=== PATIENT | female | born 1990 | race Caucasian/White ===

== ENCOUNTER 2024-03-20 17:04 | Emergency (ER) | payer MEDICAID ==
[~2024-03-20] VITALS: Ht 165.1 cm; Wt 79.4 kg
[2024-03-20 17:25] VITALS: BP_SYST 158; PULSE 95; RESP 18; TEMP 97.8; O2SAT 95
[2024-03-20] MEDS: LORazepam 2 MG/ML VIAL IM ONE (17:25)
[2024-03-20] MEDS: ONDANSETRON HCL 4 MG/2 ML VIAL IVP ONE (18:15)
[2024-03-20 18:18] LABS: BASOPHILS # (AUTO) 0.1 K/uL (0.0-0.2); BASOPHILS % (AUTO) 1.2 % (0.0-2.0); EOSINOPHILS # (AUTO) 0.1 K/uL (0.0-0.4); EOSINOPHILS % (AUTO) 1.4 % (0.0-4.0); HEMATOCRIT 34.8 % (36-48); HEMOGLOBIN 11.6 g/dL (12.0-16.0); LYMPHOCYTES # (AUTO) 2.4 K/uL (1.0-5.5); LYMPHOCYTES % (AUTO) 33.3 % (20.5-51.5); MEAN CORPUSCULAR HEMOGLOBIN 28 pg (27-31); MEAN CORPUSCULAR HGB CONC 33 % (32-36); MEAN CORPUSCULAR VOLUME 85 fL (79.0-98.0); MONOCYTES # (AUTO) 0.5 K/uL (0.0-1.0); MONOCYTES % (AUTO) 6.4 % (1.7-9.3); NEUTROPHILS # (AUTO) 4.2 K/uL (1.8-7.7); NEUTROPHILS % (AUTO) 57.7 % (40.0-70.0); PLATELET COUNT (AUTO) 277 K/uL (130-430); RED BLOOD CELL COUNT(AUTO) 4.12 MIL/uL (4.2-6.2); RED CELL DISTRIBUTION WIDTH 16.5 % (9.0-15.0); WHITE BLOOD COUNT (AUTO) 7.3 K/uL (4.8-10.8)
[2024-03-20 18:29] LABS: ALBUMIN 3.3 g/dL (3.4-4.8); CREATININE 0.87 mg/dL (0.55-1.30); POTASSIUM 3.3 mmol/L (3.5-5.1); TOTAL BILIRUBIN 0.3 mg/dL (0.0-1.0); TOTAL PROTEIN, SERUM 7.6 g/dL (6.4-8.3)
[2024-03-20 18:30] LABS: BILIRUBIN,DIRECT 0.1 mg/dL (0.0-0.3)
[2024-03-20 20:05] LABS: BARBITURATE, URINE NEGATIVE (NEG <=200)
[2024-03-20 20:06] LABS: BENZODIAZEPINE, URINE NEGATIVE (NEG <=150); CANNABINOID, URINE POSITIVE (NEG <=50); COCAINE, URINE NEGATIVE (NEG <=150); METHAMPHETAMINES SCREEN,URINE POSITIVE (NEG <=500); OPIATE, URINE NEGATIVE (NEG <=100); PHENCYCLIDINE SCREEN,URINE NEGATIVE (NEG <=25); UR TRICYCLIC ANTIDEPRESSANTS NEGATIVE (NEG <=300); URINE AMPHETAMINE NEGATIVE (NEG <=500); URINE METHADONE NEGATIVE (NEG <=200); URINE OXYCODONE SCREEN NEGATIVE (NEG <=100)
[2024-03-20] MEDS: NACL 0.9% 1,000 ML IV ONE (20:35)
[2024-03-20] MEDS: THIAMINE HCL 200 MG/2 ML VIAL IM ONE (20:40)
[2024-03-21] MEDS: LABETALOL HCL 20 MG/4 ML CARTRIDGE IVP ONE ×2 (03:26→06:27)
[2024-03-21] MEDS: ONDANSETRON HCL 4 MG/2 ML VIAL IVP ONE (07:42)
[2024-03-21 13:00] VITALS: BP_SYST 168; PULSE 79; RESP 19; TEMP 97.8; O2SAT 98
== END 2024-03-21 12:28 | disposition home or self-care (01) ==
LOC: EDBD 17:04 → SED 17:04
DX: F10.129 Alcohol abuse with intoxication, unspecified (principal); F12.10 Cannabis abuse, uncomplicated; F15.10 Other stimulant abuse, uncomplicated; Y90.8 Blood alcohol level of 240 mg/100 ml or more
CPT/HCPCS: 99285; 80307; 80076; 80048; 83690; 85025; 36415; 96372; 96374; 96375; 96376; G0482; J2060; J3411; J2405